=== PATIENT | male | born 1995 | race Caucasian/White ===

== ENCOUNTER 2024-11-30 18:47 | Emergency (ER) | payer BC, SELFPAY | END 2024-11-30 21:16 | disposition home or self-care (01) | LOC: CSHERS 18:47 | DX: S70.12XA Contusion of left thigh, initial encounter (principal); J45.909 Unspecified asthma, uncomplicated; F17.290 Nicotine dependence, other tobacco product, uncomplicated; Z79.51 Long term (current) use of inhaled steroids; W20.8XXA Other cause of strike by thrown, projected or falling object, initial encounter ==